=== PATIENT | male | born 1950 | race Caucasian/White ===

== ENCOUNTER 2017-05-12 07:47 | Day surgery (SDC) | payer BC ==
[~2017-05-12 07:47] MED LIST: EPINEPHrine 1 MG/ML SDV ONE; Lactated Ringers 1,000 ML IV SCH; Lidocaine 1% 4 ML ONE; Lidocaine 1%/Sod Bicarbonate in NS 8.4% 1 ML Syringe IV PRN; Ropivacaine 0.5% 5 MG/ML 30 ML SDV ONE; Sodium Chloride 0.9% 10 ML Syringe FLUSH PRN
[2017-05-12] MEDS ORDERED: Bupivacaine 0.25% 30 ML SDV ONE (08:15)
--- NOTE | 2017-05-12 09:01 | PCM.PREANE ---
Preanesthetic Assessment - Anesthesia/Transfusion/Family Hx Anesthesia History: Prior Anesthesia Without Reaction Family History of Anesthesia Reaction: No Transfusion History: Unknown - Review of Systems General: No Symptoms Pulmonary: No Symptoms Cardiovascular: No Symptoms, Other (Negative stress test years ago. ) Gastrointestinal: No Symptoms Neurological: No Symptoms Other: Reports: Diabetes (Type II controlled) - Physical Assessment NPO Status Date: 05/11/17 NPO Status Time: 20:00 Pulse: 59 O2 Sat by Pulse Oximetry: 95 Respiratory Rate: 16 Blood Pressure: 148/74 Temperature: 36.0 C Weight: 100 kg ASA Class: 2 Mental Status: Alert & Oriented x3 Airway Class: Mallampati = 2 Dentition: Reports: Normal Dentition Thyro-Mental Finger Breadths: 3 Mouth Opening Finger Breadths: 3 ROM/Head Extension: Limited/Partial (cervical neck surgery, pain with extension. ) Lungs: Clear to Auscultation, Normal Respiratory Effort Cardiovascular: Regular Rate, Regular Rhythm - Lab Values: Laboratory Last Values POC Glucose 141 mg/dL (80-115) H 05/12/17 08:20 MRSA (PCR) Negative 04/26/17 15:14 - Allergies Allergies/Adverse Reactions: Allergies Allergy/AdvReac Type Severity Reaction Status Date / Time Tetanus Vaccines and Toxoid Allergy Anaphylactic Verified 05/11/17 13:30 [Tetanus Vaccines & Toxoid] Shock - Acknowledgements Anesthesia Type Planned: General Anesthesia, Regional Block Pt an Appropriate Candidate for the Planned Anesthesia: Yes Alternatives and Risks of Anesthesia Discussed w Pt/Guardian: Yes Pt/Guardian Understands and Agrees with Anesthesia Plan: Yes PreAnesthesia Questionnaire HEENT History: Reports: Impaired Vision Cardiovascular History: Reports: High Cholesterol, Hypertension Respiratory History: Reports: None Gastrointestinal History: Reports: None Genitourinary History: Reports: None [employer]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 Musculoskeletal History: Reports: Back Pain, Chronic Psychiatric History: Reports: None Endocrine/Metabolic History: Reports: Diabetes, Type II Hematologic History: Reports: None Immunologic History: Reports: None Oncologic (Cancer) History: Reports: Other (See Below) Other Oncologic History: skin cancer Dermatologic History: Reports: None - Past Surgical History Head Surgeries/Procedures: Reports: None HEENT Surgical History: Reports: None Cardiovascular Surgical History: Reports: None Respiratory Surgical History: Reports: None GI Surgical History: Reports: Colonoscopy Female Surgical History: Reports: None Male Surgical History: Reports: None Endocrine Surgical History: Reports: None Neurological Surgical History: Reports: C-Spine, Other (See Below) Other Neurological Surgeries/Procedures: neck surgery x2 Musculoskeletal Surgical History: Reports: Other (See Below) Other Musculoskeletal Surgeries/Procedures:: left leg surgery, right knee surgery Oncologic Surgical History: Reports: None Dermatological Surgical History: Reports: None - SUBSTANCE USE Smoking Status *Q: Never Smoker Second Hand Smoke Exposure: No Days Per Week of Alcohol Use: 1 Recreational Drug Use History: No - HOME MEDS Home Medications: Home Meds Valsartan/Hydrochlorothiazide [Valsartan-Hctz 320-12.5 mg Tab] 1 tab PO DAILY [History] Empagliflozin/Linagliptin [Glyxambi 25 mg-5 mg Tablet] 1 tab PO QAM 05/11/17 [ History] atorvaSTATin Calcium [Atorvastatin Calcium] 20 mg PO DAILY 05/11/17 [History] Cyclobenzaprine [Flexeril] 10 mg PO Q8H PRN #40 tablet 05/12/17 [Rx] Hydrocodone/Acetaminophen [[place] 5-325 Tablet] 1 - 2 each PO Q6H PRN #40 tablet 05/12/17 [Rx] - CURRENT (IN HOUSE) MEDS Current Meds: Current Medications Epinephrine HCl (Adrenalin) 3 mg .XX ONETIME ONE Stop: 05/12/17 09:31 Lactated Ringer's (Ringers, Lactated) 1,000 mls @ 125 mls/hr IV ASDIRECTED G[place]KITO Lidocaine/Sodium Bicarbonate (Buffered Lidocaine 1% In Ns 8.4%) 0.25 ml IV ONETIME PRN PRN Reason: Prior to IV Start Sodium Chloride (Saline Flush) 10 ml FLUSH ASDIRECTED PRN PRN Reason: Keep Vein Open Discontinued Medications Bupivacaine HCl (Marcaine 0.25%) Confirm Administered Dose 30 ml .ROUTE .STK- MED ONE Stop: 05/12/17 08:16 Epinephrine HCl (Adrenalin) Confirm Administered Dose 1 mg .ROUTE .STK-MED ONE Stop: 05/12/17 05:36 Lidocaine HCl (Xylocaine-Mpf 1%) Confirm Administered Dose 4 mls @ as directed .ROUTE .STK-MED ONE Stop: 05/12/17 05:36 Ropivacaine (Naropin 0.5%) Confirm Administered Dose 30 ml .ROUTE .STK-[facility]ENCY [facility] ONE Stop: 05/12/17 05:36
[2017-05-12] MEDS ORDERED: Midazolam 1 MG/ML 2 ML SDV ONE ×2 (09:21→09:25)
[2017-05-12] MEDS ORDERED: fentaNYL 100 MCG/2 ML SDV ONE (09:21)
[2017-05-12] MEDS ORDERED: fentaNYL 250 MCG/5 ML SDV ONE (09:25)
[2017-05-12] MEDS ORDERED: Propofol 200 MG/20 ML SDV ONE (09:25)
[2017-05-12] MEDS ORDERED: Lidocaine 1% 4 ML ONE (09:27)
[2017-05-12] MEDS ORDERED: Dexamethasone 4 MG/ML SDV ONE (09:27)
[2017-05-12] MEDS ORDERED: Ondansetron 4 MG/2 ML SDV ONE (09:27)
[2017-05-12] MEDS ORDERED: EPINEPHrine 1 MG/ML 30 ML MDV ONE (09:30)
--- NOTE | 2017-05-12 10:00 | PCM.SN ---
- Free Text/Narrative Note: Anesthesia Note: (Interscalene block note) Date: 05/12/17 Time Out: 917 Start: 913 Stop: 937 Surgical Procedure: Left Shoulder Video Arthroscopy Diagnosis: Left Osteoarthritis/Bone spur Current Procedure: Left interscalene block under US guidance for postoperative pain control requested by Dr. Gilliam. Patient chart reviewed, risk/benefits discussed with patient, consent obtained. Patient positioned supine, monitors/alarms on, oxygen placed via nasal cannula at 2 LPM. IV sedation administered: Versed 2mg IV @ 0918 Fentanyl 50 mcg IV @ 0925 50 mcg IV @ 0935 Left shoulder prepped with two chloropreps. Sterile drapes placed with aseptic technique noted. Under US guidance(sterile US sleeve noted) right subclavian artery visualized along with the right brachial plexus. Plexus followed up to C6 cricoid level, and area localized with 2mls of 1% lidocaine. 22gauge 2 inch stimiplex needle advanced under US with 0.8mV with stimulation of biceps noted. Good stimulation noted with decreased voltage and absent at 0.2mVs. 1ml of Normal Saline injected with loss of stimulation noted to confirm needle not placed intraneurally. Incremental dosing of 5mls with negative aspiration noted prior to each injection of 0.5% ropivacaine with 1:200,000 epinephrine. Total volume=30mls. Patient tolerated the procedure well. No complications noted. Limited movement of arm noted at 0958. Vital Signs: Preprocedure HR: 52 RR: 13 BP: 155/71 Spo2: on 2 LPM nasal cannula Postprocedure HR: 57 RR: 15 BP: 119/67 Spo2: on 2LPM nasal cannula
[2017-05-12] MEDS ORDERED: ceFAZolin 1 GM Vial ONE (11:20)
[2017-05-12] MEDS ORDERED: Meperidine PF 50 MG/ML Syringe IVPUSH PRN (11:32)
[2017-05-12] MEDS ORDERED: fentaNYL 100 MCG/2 ML SDV IVPUSH PRN (11:32)
[2017-05-12] MEDS ORDERED: diphenhydrAMINE 50 MG/ML SDV IVPUSH PRN (11:32)
[2017-05-12] MEDS ORDERED: Ondansetron 4 MG/2 ML SDV IVPUSH PRN (11:32)
--- NOTE | 2017-05-12 11:34 | PCM.POSTAN ---
POST ANESTHESIA ASSESSMENT - MENTAL STATUS Mental Status: Somnolent - VITAL SIGNS Pulse Rate: 92 SaO2: 95 Resp Rate: 18 Blood Pressure: 166/93 Temperature: 36.1 C - RESPIRATORY Respiratory Status: Respiratory Rate WNL, Airway Patent, O2 Saturation Stable, Supplemental Oxygen - CARDIOVASCULAR CV Status: Pulse Rate WNL, Blood Pressure Stable - GASTROINTESTINAL GI Status: No Symptoms - PAIN Pain Score: 0 - POST OP HYDRATION Hydration Status: Adequate & Stable
[2017-05-12 14:34] VITALS: BP 137/73
--- NOTE | 2017-05-18 09:32 | PCM.OPNOTE ---
- General Post-Op/Procedure Note Date of Surgery/Procedure: 05/12/17 Operative Procedure(s): left shoulder video arthroscopy with extensive debridement and subacromial decompression Pre Op Diagnosis: left shoulder impingement with bursitis Post-Op Diagnosis: Same Anesthesia Technique: General ET Tube, Regional Block Primary Surgeon: Akin Gilliam Anesthesia Provider: Linda Leija Research Project Coordinator: Lorie Mcallister EBL in mLs: 5 Complications: None Condition: Good
--- NOTE | 2017-05-18 11:00 | OR ---
DATE OF OPERATION: 05/12/2017 SURGEON: Akin Gilliam MD OPERATION PERFORMED: Left shoulder video arthroscopy with extensive debridement and subacromial decompression. PREOPERATIVE DIAGNOSIS: Left shoulder subacromial impingement with bursitis. POSTOPERATIVE DIAGNOSIS: Left shoulder subacromial impingement with bursitis. ANESTHESIA: General endotracheal intubation with regional interscalene block. ANESTHESIA PROVIDER: Safia Drummond. WINDER FIXER: Lorie Mcallister PA-C. ESTIMATED BLOOD LOSS: Less than 5 mL. COMPLICATIONS: None. CONDITION: Stable. DESCRIPTION OF PROCEDURE: The patient was identified in the preoperative holding area. Proper site was marked and identified by the surgeon. The patient was taken back to the operating theater, where after adequate anesthesia, the patient was placed in a lazy right lateral decubitus position. A wedge was placed posteriorly. The patient was secured to the table. All bony prominences were well padded. Left shoulder was then sterilely prepped and draped in the usual sterile fashion. OR- wide time-out was performed. The patient received 2 grams of IV Ancef. 15 pounds of traction was applied to the left upper extremity. At this time, standard posterior incision was made. Scope trocar was introduced to the glenohumeral joint. At this time, an anterior portal was then also created with an outside-in technique with a spinal needle. At this time, the patient was noted to have significant fraying of the labrum. There was a minor amount of change to the undersurface of the supraspinatus, but no full-thickness tears were noted. At this time, a debridement was done of the labrum bringing back to a stable rim as well as the significant synovitis that was found. The biceps tendon showed no signs of fraying or erythema. The underside of the rotator cuff was otherwise intact. The patient had grade 1 chondromalacia changes to the glenoid, but none to the humerus. At this time, the scope trocar was removed and placed in the subacromial space. The patient was noted to have significant bursitis and synovitis noted at the subacromial space. Lateral portal was then created. With the use of a resector, extensive debridement was then done of the subacromial space of all bursitis and tissue. At this time, the CA ligament was taken down all the way to the level of the anterior acromion. The patient was noted to have significant type-3 acromion. At this time, with the use of a 4-0 full-radius bur, acromioplasty was performed back to a type-1 acromion and a smooth border. At this time, the rest of the subacromial space showed no signs of pathology. The rotator cuff showed no signs of fraying. At this time, excess saline was drained from the shoulder. 3- 0 nylon simple suture was used for closure of the skin. The patient had sterile soft dressing applied as well as a pillow sling, and sent to the PACU in a stable condition. MMODAL /[id number]
== END 2017-05-12 14:20 | disposition home or self-care (01) ==
LOC: JD.SDS 07:47
PROVIDERS: ATTEND Orthopaedic Surgery
DX: M75.52 Bursitis of left shoulder (principal); M75.42 Impingement syndrome of left shoulder; M94.212 Chondromalacia, left shoulder; I10 Essential (primary) hypertension; E11.9 Type 2 diabetes mellitus without complications; E78.5 Hyperlipidemia, unspecified; Z79.899 Other long term (current) drug therapy
CPT/HCPCS: 29823; 29826; 64415; 82962; 87641; J0171; J0690; J1100; J2250; J2405; J2795; J3010; J3490; J7120; 01630; J2704

== ENCOUNTER 2025-03-20 19:12 | Emergency (ER) | payer MEDICARE, OTHER ==
[2025-03-20 20:03] LABS: BASOPHILS ABSOLUTE AUTO 0.1 K/mm3 (0.0-0.2); BASOPHILS PERCENT AUTO 2.2 % (0.0-1.0); EOSINOPHILS ABSOLUTE AUTO 0.1 K/mm3 (0.0-0.4); EOSINOPHILS PERCENT AUTO 1.6 % (0.0-6.0); IMMATURE GRAN ABSOLUTE AUTO 0.03 K/mm3 (0.00-0.05); IMMATURE GRAN PERCENT AUTO 1.0 % (0.0-0.4); LYMPHOCYTES ABSOLUTE AUTO 1.1 K/mm3 (1.0-4.8); LYMPHOCYTES PERCENT AUTO 35.2 % (24.0-44.0); MEAN PLATELET VOLUME 10.6 fl (9.4-12.4); MONOCYTES ABSOLUTE AUTO 0.2 K/mm3 (0.0-0.8); MONOCYTES PERCENT AUTO 4.8 % (0.0-8.0); NEUTROPHILS ABSOLUTE AUTO 1.7 K/mm3 (1.8-7.7); NEUTROPHILS PERCENT AUTO 55.2 % (41.0-71.0); NRBC ABSOLUTE 0.00 (0.00-0.02); NRBC PERCENT 0.0 % (0.0-0.2); PLATELET COUNT,PLT 195 K/mm3 (150-400); RED BLOOD CELL COUNT 3.67 M/mm3 (4.52-5.90); WHITE BLOOD CELL COUNT,WBC 3.15 K/mm3 (3.9-11.3)
[2025-03-20 20:50] LABS: A/G RATIO 0.8 (1-2); ALANINE AMINOTRANSFERASE,ALT 51.0 U/L (16-63); ASPARTATE AMNIOTRANSFERASE,AST 30.0 U/L (15-37); BILIRUBIN TOTAL 0.5 mg/dL (0.2-1.0); BLOOD UREA NITROGEN,BUN 19.0 mg/dL (7-18); CARBON DIOXIDE,CO2 31.0 mEq/L (21-32); CHLORIDE,CL 103.0 mEq/L (98-107); CREATININE 1.0 mg/dL (0.7-1.3); EST CRCL DRUG DOSING (CG) 70.07 mL/min; ESTIMATED GFR 79.0 mL/min (>60); GLUCOSE RANDOM 295.0 mg/dL (70-99); POTASSIUM,K 4.1 mEq/L (3.5-5.1); PROTEIN TOTAL,TP 6.3 g/dl (6.4-8.2); SODIUM,NA 141.0 mEq/L (136-145); TROPONIN I HIGH SENSITIVITY 5.0 pg/mL (<=76)
[2025-03-20 20:52] LABS: CREATINE KINASE,CK 78.0 U/L (39-308); TSH 6.267 uIU/mL (0.358-3.74)
[2025-03-20 20:53] LABS: T4 FREE 1.0 ng/dL (0.76-1.46)
[2025-03-20] MEDS: Phosphorus #1 250 MG Tab PO ONE (21:55)
[2025-03-20] MEDS: Sodium Chloride 0.9% 10 ML Syringe FLUSH PRN (21:56)
[2025-03-20 23:09] VITALS: BP 166/77; PULSE 88
== END 2025-03-20 23:00 | disposition home or self-care (01) ==
LOC: JD.ED 19:12
DX: R42 Dizziness and giddiness (principal); E83.39 Other disorders of phosphorus metabolism; I10 Essential (primary) hypertension; E11.9 Type 2 diabetes mellitus without complications; E78.00 Pure hypercholesterolemia, unspecified; Z88.7 Allergy status to serum and vaccine; Z79.899 Other long term (current) drug therapy
CPT/HCPCS: 36415; 71045; 80053; 82550; 83605; 83735; 83880; 84100; 84439; 84443; 84484; 85025; 93005; 96360; 99285; A9270; J7030; 93010; 99283

== ENCOUNTER 2025-03-29 09:00 | Emergency (ER) | payer MEDICARE, OTHER ==
[2025-03-29 09:11] VITALS: PULSE 57
[2025-03-29] MEDS ORDERED: Sodium Chloride 0.9% 10 ML Syringe FLUSH PRN (09:44)
[2025-03-29 09:55] LABS: BASOPHILS ABSOLUTE AUTO 0.1 K/mm3 (0.0-0.2); BASOPHILS PERCENT AUTO 0.6 % (0.0-1.0); EOSINOPHILS ABSOLUTE AUTO 0.1 K/mm3 (0.0-0.4); EOSINOPHILS PERCENT AUTO 0.4 % (0.0-6.0); IMMATURE GRAN ABSOLUTE AUTO 0.10 K/mm3 (0.00-0.05); IMMATURE GRAN PERCENT AUTO 0.9 % (0.0-0.4); LYMPHOCYTES ABSOLUTE AUTO 1.9 K/mm3 (1.0-4.8); LYMPHOCYTES PERCENT AUTO 16.8 % (24.0-44.0); MEAN PLATELET VOLUME 10.4 fl (9.4-12.4); MONOCYTES ABSOLUTE AUTO 1.1 K/mm3 (0.0-0.8); MONOCYTES PERCENT AUTO 9.5 % (0.0-8.0); NEUTROPHILS ABSOLUTE AUTO 8.1 K/mm3 (1.8-7.7); NEUTROPHILS PERCENT AUTO 71.8 % (41.0-71.0); NRBC ABSOLUTE 0.00 (0.00-0.02); NRBC PERCENT 0.0 % (0.0-0.2); PLATELET COUNT,PLT 156 K/mm3 (150-400); RED BLOOD CELL COUNT 4.23 M/mm3 (4.52-5.90); WHITE BLOOD CELL COUNT,WBC 11.32 K/mm3 (3.9-11.3)
[2025-03-29 09:58] LABS: APPEARANCE,URINE CLEAR (Clear); GLUCOSE,URINE NEGATIVE (Negative); OCCULT BLOOD,URINE NEGATIVE (Negative)
[2025-03-29 10:07] LABS: A/G RATIO 0.8 (1-2); ALANINE AMINOTRANSFERASE,ALT 38.0 U/L (16-63); ASPARTATE AMNIOTRANSFERASE,AST 22.0 U/L (15-37); BILIRUBIN TOTAL 0.8 mg/dL (0.2-1.0); BLOOD UREA NITROGEN,BUN 17.0 mg/dL (7-18); CARBON DIOXIDE,CO2 26.0 mEq/L (21-32); CHLORIDE,CL 107.0 mEq/L (98-107); CREATININE 0.9 mg/dL (0.7-1.3); EST CRCL DRUG DOSING (CG) 80.23 mL/min; ESTIMATED GFR 90.0 mL/min (>60); GLUCOSE RANDOM 100.0 mg/dL (70-99); POTASSIUM,K 3.5 mEq/L (3.5-5.1); PROTEIN TOTAL,TP 6.5 g/dl (6.4-8.2); SODIUM,NA 144.0 mEq/L (136-145)
[2025-03-29 12:51] VITALS: BP 135/76
== END 2025-03-29 13:45 ==
LOC: JD.ED 09:00
DX: S72.142A Displaced intertrochanteric fracture of left femur, initial encounter for closed fracture (principal); E78.00 Pure hypercholesterolemia, unspecified; I10 Essential (primary) hypertension; E11.9 Type 2 diabetes mellitus without complications; Z79.84 Long term (current) use of oral hypoglycemic drugs; Z79.899 Other long term (current) drug therapy; Z88.7 Allergy status to serum and vaccine; W01.0XXA Fall on same level from slipping, tripping and stumbling without subsequent striking against object, initial encounter
CPT/HCPCS: 36415; 70450; 72125; 72170; 73552; 80053; 81003; 83735; 85025; 96374; 96376; 99285; J1171